=== PATIENT | female | born 1960 | race African-American/Black ===

== ENCOUNTER 2019-06-18 11:15 | Emergency (ER) | payer SELFPAY ==
[~2019-06-18] VITALS: Ht 167.6 cm; Wt 70.0 kg
[2019-06-18] MEDS ORDERED: ONDANSETRON HCL 4MG/2ML INJ IV STA (12:18)
[2019-06-18] MEDS ORDERED: MORPHINE SULFATE 10 MG/ML CPJ IV ONE ×2 (12:30→14:45)
[2019-06-18] MEDS ORDERED: SODIUM CHLORIDE 0.9% 1,000 ML IV ONE (14:00)
[2019-06-18] MEDS ORDERED: KETAMINE HCL 50 MG/ML 10ML IV ONE (14:00)
[2019-06-18] MEDS ORDERED: PROPOFOL 200MG/20ML VIAL IV ONE (14:00)
[2019-06-18] MEDS ORDERED: HYDROCODONE/ACETAMINOPHEN 10/325MG TABLET PO ONE (16:15)
[2019-06-18 17:34] VITALS: BP 114/82
== END 2019-06-18 17:41 | disposition home or self-care (01) ==
LOC: ER 16:23
DX: S82.831A Other fracture of upper and lower end of right fibula, initial encounter for closed fracture (principal); S82.391A Other fracture of lower end of right tibia, initial encounter for closed fracture; W01.0XXA Fall on same level from slipping, tripping and stumbling without subsequent striking against object, initial encounter; Y93.89 Activity, other specified; Y92.018 Other place in single-family (private) house as the place of occurrence of the external cause
CPT/HCPCS: 29515; 73610; 96361; 96374; 96375; 96376; 99152; 99285; J2270; J2405; J2704; J3490; J7030